=== PATIENT | female | born 1975 | race Caucasian/White ===

== ENCOUNTER → 2017-05-23 09:04 | Outpatient (CLI) | payer OTHER, SELFPAY ==
--- NOTE | 2017-05-23 | US_ITS ---
US abdomen complete HISTORY: Abdominal mass, palpable abnormality right side of the abdomen ORDERING PHYSICIAN: Leilani Cullen PATIENT AGE: 42 years COMPARISON: None FINDINGS: PANCREAS:Unremarkable. No obvious mass or abnormal fluid collection. No ductal dilatation LIVER:No focal liver lesions demonstrated. Homogeneous echogenicity. No intrahepatic biliary ductal dilatation evident RIGHT KIDNEY:Unremarkable. Normal size and echogenicity. No hydronephrosis LEFT KIDNEY:Unremarkable. No hydronephrosis. Normal size and echogenicity. GALLBLADDER:No gallstones, gallbladder wall thickening, pericholecystic fluid, or biliary dilatation. There is a small gallbladder polyp along the anterior wall of the gallbladder measuring 4 mm. AORTA:No evidence of aneurysmal dilatation. SPLEEN:Unremarkable. Normal size and echogenicity ASCITES:None demonstrated. Evaluation of the abdominal wall in the right lower quadrant is limited technically. There may be a abdominal wall defect with hernia in the right lower quadrant. Recommend CT for confirmation. This is not adequately evaluated with ultrasound. IMPRESSION: 1. Possible abdominal wall hernia right lower quadrant recommend CT 2. Small gallbladder polyp
--- NOTE | 2017-05-23 09:17 | US_ITS ---
US transvaginal HISTORY: ITS.REASON: LUMP IN RLQ--PALP MASS ORDERING PHYSICIAN: Leilani Cullen PATIENT AGE: 42 years COMPARISON: None FINDINGS: The uterus is retroverted UTERUS: The uterus measures 8 x 4 x 5 cm. Combined endometrial thickness is 1 cm. The uterus is retroverted. Small nabothian cysts RIGHT OVARY: 3 x 2 cm. There are small follicles measuring up to 14 mm LEFT OVARY: 4.7 x 3.8 cm. There is a 3 x 3.9 cm left ovarian cyst CUL-DE-SAC FLUID: No cul-de-sac fluid apparent OTHER FINDINGS: Bilateral ovarian blood flow IMPRESSION: 1. Retroverted uterus.. Endometrium upper limits of normal in thickness 2. 4 cm left ovarian cyst and 1.4 cm right ovarian cyst
== END ==
PROVIDERS: Family Provider Nurse Practitioner; PCP Family Medicine; Visit Provider Nurse Practitioner
DX: R22.9 Localized swelling, mass and lump, unspecified (principal); R10.31 Right lower quadrant pain
CPT/HCPCS: 76700; 76830

== ENCOUNTER → 2017-06-20 08:09 | Outpatient (CLI) | payer OTHER, SELFPAY ==
--- NOTE | 2017-06-20 10:30 | CT_ITS ---
CT abdomen pelvis w con CLINICAL INDICATION: ITS.REASON: ABDOMINAL HERNIA W/O OBSTRUCTION ORDERING PHYSICIAN: Karly Arnold PATIENT AGE: 42 years COMPARISON: None TECHNIQUE: Axial images obtained with sagittal and coronal reformats. PROCEDURE: Oral Contrast: Redicat IV Contrast: 75 mL of Isovue-370. FINDINGS: In the lung bases there is a 13 mm oval opacity along the right hemidiaphragm slightly posteriorly this is subpleural along the hemidiaphragm. The liver, gallbladder, spleen, adrenal glands, pancreas, and kidneys have an unremarkable appearance Unremarkable appendix. There are diverticula of the descending and sigmoid colon. No evidence of diverticulitis. No pelvic mass or abnormal fluid collection. The uterus is retroverted and slightly bulky at the fundal area There is a small right inguinal hernia. The hernia is lateral to the inferior epigastric vessels consistent with an indirect hernia. Small bowel is present within the hernia. Once the small bowel enters the hernia there is a loop which traverses superiorly between the layers of the fascia and also inferiorly toward the inguinal region. No intestinal obstruction is evident. No evidence of strangulation. No acute bony anomalies. IMPRESSION: 1. Small right indirect inguinal hernia containing small bowel without evidence of obstruction or strangulation 2. 13 mm oval opacity in the right lung base adjacent to the diaphragm. This is of questionable clinical significance. Follow-up is recommended 3. Colonic diverticulosis. 4. Bulky retroverted uterus
== END ==
PROVIDERS: Family Provider Nurse Practitioner; PCP Family Medicine; Visit Provider Nurse Practitioner Family
DX: K45.8 Other specified abdominal hernia without obstruction or gangrene (principal)
CPT/HCPCS: 74177

== ENCOUNTER 2017-06-27 11:28 | Day surgery (SDC) | payer OTHER, SELFPAY ==
[2017-06-26 13:31] VITALS: BMI 24.3
[2017-06-27] VITALS (13 sets, daily range): BP systolic 113–138; BP diastolic 70–90; PULSE 69–86; RESP 16–18; TEMP 36.3–43; O2SAT 93–99
[2017-06-27 12:36] LABS: Basophils # 0.1 K/mm3 (0-0.2); Basophils % 0.5 % (0.1-2.0); Eosinophils # 0.2 K/mm3 (0.0-0.4); Eosinophils % 1.9 % (0.1-12.0); Hematocrit 50.1 % (37.0-47.0); Hemoglobin 16.4 g/dL (12.2-16.2); Lymphocytes # 2.4 K/mm3 (0.7-4.5); Lymphocytes % 21.8 K/mm3 (10-50); Mean Corpuscular HGB Conc 32.7 g/dL (31.8-35.4); Mean Corpuscular Volume 91.7 fl (81-99); Mean Platelet Volume 8.8 fl (7.4-10.4); Monocytes # 0.6 K/mm3 (0.1-1.0); Neutrophils # 7.8 K/mm3 (1.8-7.8); Neutrophils % 70.7 % (37.0-80.0); Platelet Count 231 K/mm3 (142-424); Red Blood Count 5.47 M/mm3 (4.20-5.40); Red Cell Distribution Width 12.6 % (11.5-17.5); White Blood Count 11.1 K/mm3 (4.8-10.8)
[2017-06-27 12:37] LABS: Anion Gap 10.6 mEq/L (5-15); Blood Urea Nitrogen 7 mg/dL (7-18); Carbon Dioxide 28 mmol/L (21.0-32.0); Chloride 104 mmol/L (98-107); Creatinine Clearance Estimated 130 mL/min (0-300); Creatinine,Serum 0.63 mg/dL (0.55-1.02); Estimated Glomerular Filt Rate 104 ml/min (>60); GFR (African American) 126 ML/MIN (>60); Glucose 86 mg/dL (74-106); Potassium 3.6 mmoL/L (3.5-5.1); Sodium 139 mmol/L (136-145)
[2017-06-27 12:49] LABS: HCG Qualitative, Serum Negative (Negative)
--- NOTE | 2017-06-27 14:16 | HMH.OPNOTE ---
Date of procedure: 06/27/17 Pre-op Diagnosis:: Right inguinal hernia Post-op Diagnosis:: same Procedure performed:: Open repair of right inguinal hernia Surgeon:: Chris oMraes MD [employer] OPERATOR:: Francisco Moon Anesthesia: LMA Estimated blood loss (mL): 10 Operative findings:: Large superior margin direct defect Operative note:: After informed consent was obtained, the patient was taken to the operating room and placed in the supine position. General anesthesia was induced and her abdomen and groin were prepped and draped in a sterile fashion. After infiltration with local anesthetic an oblique incision was made in the right groin. Sharp dissection was taken through Skyla's fascia to the level of the external aponeurosis. The external aponeurosis was sharply opened with Metzenbaum scissors to the level of the external ring. A large superior margin direct defect was noted. Careful reduction of preperitoneal fat and sac was followed by placement of an extra large Prolene plug. The Prolene plug was secured circumferentially to the fascial margin. The Prolene overlay mesh was then secured inferiorly to the shelving edge and superiorly to the fascial margin above the plug. The external aponeurosis was reapproximated with interrupted Vicryl. Skyla's fascia was reapproximated in the same manner. Skin was closed with 4-0 Monocryl in a running subcuticular fashion. Steri-Strips and a sterile dressing were applied. The patient was transferred to recovery in stable condition after removal of her laryngeal mask airway. Condition: stable Disposition: PACU Specimens:: None Complications:: No immediate
--- NOTE | 2017-06-27 14:20 | P.OP_ITS ---
Date of procedure: 06/27/17 Pre-op Diagnosis:: Right inguinal hernia Post-op Diagnosis:: same Procedure performed:: Open repair of right inguinal hernia Surgeon:: Chris Moraes MD [employer] ANALYST:: Francisco Moon Anesthesia: LMA Estimated blood loss (mL): 10 Operative findings:: Large superior margin direct defect Operative note:: After informed consent was obtained, the patient was taken to the operating room and placed in the supine position. General anesthesia was induced and her abdomen and groin were prepped and draped in a sterile fashion. After infiltration with local anesthetic an oblique incision was made in the right groin. Sharp dissection was taken through Skyla's fascia to the level of the external aponeurosis. The external aponeurosis was sharply opened with Metzenbaum scissors to the level of the external ring. A large superior margin direct defect was noted. Careful reduction of preperitoneal fat and sac was followed by placement of an extra large Prolene plug. The Prolene plug was secured circumferentially to the fascial margin. The Prolene overlay mesh was then secured inferiorly to the shelving edge and superiorly to the fascial margin above the plug. The external aponeurosis was reapproximated with interrupted Vicryl. Skyla's fascia was reapproximated in the same manner. Skin was closed with 4-0 Monocryl in a running subcuticular fashion. Steri- Strips and a sterile dressing were applied. The patient was transferred to recovery in stable condition after removal of her laryngeal mask airway. Condition: stable Disposition: PACU Specimens:: None Complications:: No immediate
--- NOTE | 2017-06-27 14:28 | P.PN_ITS ---
[facility] Anesthesia Checklist - Patient Identification Patient Identification: Arm Band - Structural Data Admitted From: Home Planned Operative Procedure/s: right inguinal herniar repair Consent for Planned Operative Procedure(s) Verified: Yes Verified Documents: Surgical Consent, History and Physical - NPO Status Verified Time NPO: 00:00 - Additional verifications Anesthesia Reactions: No - Airway Assessment C-Spine Mobility Assessed: Yes (mp2) TMJ Mobility Assessed: Yes Dentition: Good Dentition - Neurological Assessment Level of Consciousness: Awake, Alert - Anesthesia Plan Anesthesia Risk discussed: Yes Anesthesia Plan: Verified ASA Class: II Anesthesia Type: General [facility] Anesthesia HX I have reviewed the patient's past medical history: Yes Medical History: Denies:: Cancer, Diabetes Mellitus Type 1, Diabetes Mellitus Type 2, MRSA, Seizures Other Medical History: Denies: Blood Transfusion Reaction Other Surgeries: Yes: Tubal Ligation Amputation: No Fractures: No *Family Hx:: Anemia, Cancer, Coronary Artery Disease, Diabetes, Hypertension
--- NOTE | 2017-06-27 14:28 | HMH.ANESI ---
[facility] Anesthesia Record Part I Intake, IV Amount: 1,400 Estimated blood loss (mL): 10 Urine output (mL): 100 Blood Pressure: 129/90 SaO2: 96 Pulse Rate: 77 Respiratory Rate: 16 Temperature: 97.4 F Patient is:: Drowsy, Stable Stable to PACU at:: 14:25
--- NOTE | 2017-06-27 14:29 | P.PN_ITS ---
[facility] Anesthesia Record Part II Discharge Time: 14:55 Destination: [facility] PACU nurse assessment reviewed?: Yes Patient Condition:: Good Anesthesia Complications:: None
--- NOTE | 2017-06-27 14:29 | HMH.ANESII ---
[facility] Anesthesia Record Part II Discharge Time: 14:55 Destination: [facility] PACU nurse assessment reviewed?: Yes Patient Condition:: Good Anesthesia Complications:: None
--- NOTE | 2017-06-27 15:40 | SUR.OPER ---
1418-griffith catheter removed at this time
[2017-06-27 18:53] LABS: Microscopic,Cath URINE MICROSCOPIC (MICROSCOPIC)
[2017-06-27 20:15] LABS: Appearance,Urine/Cath CLEAR (Clear); Bilirubin,Cath Negative (Negative); Blood, Urine/Cath TRACE-I (Negative); Color,Urine/Cath YELLOW (Yellow); Glucose,Urine/Cath (UA) Negative (Negative); Ketones,Urine/Cath 2+ (Negative); Leukocyte Esterase,Cath Negative (Negative); Nitrate,Cath Negative (Negative); PH,Urine/Cath 7.5 (5.0-8.5); Protein,Urine/Cath Negative (Negative); Urobilinogen,Cath 0.2 EU/dl (0.2)
[2017-06-27 20:36] LABS: Bacteria,Urine/Cath TRACE /lpf; Mucus,Urine/Cath 4+ /lpf; RBC,Urine/Cath Occasional # /hpf (0-3); WBC,Urine/Cath Occasional #/hpf (0-3)
== END 2017-06-27 15:35 | disposition home or self-care (01) ==
LOC: OR 11:28
PROVIDERS: Family Provider Nurse Practitioner; PCP Family Medicine; Visit Provider Surgery
PROC: (CPT 49505; principal; 2017-06-27 13:05)
DX: K40.90 Unilateral inguinal hernia, without obstruction or gangrene, not specified as recurrent (principal)
CPT/HCPCS: 49505; 80048; 81001; 84703; 85025; 96374; J0131; J2405

== ENCOUNTER → 2017-07-29 12:09 | Outpatient (CLI) | payer OTHER, SELFPAY ==
--- NOTE | 2017-07-29 12:23 | XR_ITS ---
XR chest 2V HISTORY: ITS.REASON: LUNG NODULE ORDERING PHYSICIAN: Wilmer Neely MD PATIENT AGE: 42 years COMPARISON: Abdomen CT of 318 which showed a nodule in the right lung base FINDINGS: The cardiomediastinal silhouette and pulmonary vascularity are within normal limits. The lungs are clear without infiltrates, suspicious nodules, or pleural effusions. The previously described nodule in the right lung base is probably below limits of resolution for the radiograph. No acute bony abnormalities. IMPRESSION: Negative chest, no acute finding
== END ==
PROVIDERS: PCP Family Medicine; Visit Provider Family Medicine
DX: R91.1 Solitary pulmonary nodule (principal)
CPT/HCPCS: 71046

== ENCOUNTER 2018-09-24 21:23 | Emergency (ER) | payer OTHER, SELFPAY ==
[2018-09-24 21:24] VITALS: BP 101/61; PULSE 104; RESP 15; TEMP 36.8; O2SAT 96; BMI 24.5
--- NOTE | 2018-09-24 21:26 | XR_ITS ---
XR chest 2V HISTORY: ITS.REASON: chest pain ORDERING PHYSICIAN: Abilio Mills MD PATIENT AGE: 43 years COMPARISON: None FINDINGS: The cardiomediastinal silhouette and pulmonary vascularity are within normal limits. There is increased density in the right upper lobe medially and may be due to an area of pneumonia. Recommend follow-up until clear. The remaining lungs are clear. No acute bony anomalies. IMPRESSION: Right upper lobe pneumonia. Suggest follow-up until clear is underlying lung lesion could be obscured.
--- NOTE | 2018-09-24 21:26 | CT_ITS ---
CT abdomen pelvis w con CLINICAL INDICATION: Right-sided abdominal pain with nausea ITS.REASON: chest pain/shoulder blade pain poss gb attack ORDERING PHYSICIAN: Abilio Mills MD PATIENT AGE: 43 years COMPARISON: 06/20/2017 TECHNIQUE: Axial images obtained with sagittal and coronal reformats. All CT scans at the facility use one or more dose reduction, viz: automated exposure control, ma/kV adjustment per patient size (including targeted exams where dose is matched to indication, i.e. head), or iterative reconstruction technique. PROCEDURE: Oral Contrast: None IV Contrast: 75 mL's Optiray 350. FINDINGS: There is some nodularity along the hemidiaphragm in the right lung base nonspecific. The liver, gallbladder, spleen, adrenal glands, pancreas, and kidneys have an unremarkable appearance. No intestinal obstruction or free air. Unremarkable appendix. Diverticulosis involves the descending and sigmoid colon. No evidence of diverticulitis. No intestinal obstruction or free air. The uterus is retroverted with prominence of the fundus of the uterus possibly related to fibroid involvement. Ultrasound may be of further value. No acute bony anomalies. Soft tissue density noted in the right inguinal region may be related to sequela from hernia repair. IMPRESSION: 1. No acute finding. 2. Colonic diverticulosis. 3. Possible fibroid involvement of the fundus of a retroverted uterus which may be better evaluated with ultrasound 4. Postsurgical changes right inguinal region.
[2018-09-24 21:37] LABS: Basophils # 0.1 K/mm3 (0-0.2); Basophils % 0.9 % (0.1-2.0); Eosinophils # 0.3 K/mm3 (0.0-0.4); Eosinophils % 4.3 % (0.1-12.0); Hematocrit 48.6 % (37.0-47.0); Hemoglobin 15.7 g/dL (12.2-16.2); Lymphocytes # 2.5 K/mm3 (0.7-4.5); Lymphocytes % 31.9 % (10-50); Mean Corpuscular HGB Conc 32.3 g/dL (31.8-35.4); Mean Corpuscular Hemoglobin 28.6 pg (27.0-31.2); Mean Corpuscular Volume 88.7 fl (81-99); Mean Platelet Volume 7.5 fl (7.4-10.4); Monocytes # 0.4 K/mm3 (0.1-1.0); Monocytes % 5.4 % (1.7-9.3); Neutrophils # 4.5 K/mm3 (1.8-7.8); Neutrophils % 57.5 % (37.0-80.0); Platelet Count 264 K/mm3 (142-424); Red Blood Count 5.49 M/mm3 (4.20-5.40); Red Cell Distribution Width 12.4 % (11.5-17.5); White Blood Count 7.8 K/mm3 (4.8-10.8)
[2018-09-24 21:42] LABS: Microscopic, Urine URINE MICROSCOPIC (MICROSCOPIC)
[2018-09-24 21:43] LABS: Appearance,Urine CLEAR (Clear); Blood, Urine TRACE-I (Negative); Color,Urine YELLOW (Yellow); Glucose,Urine (UA) Negative (Negative); Ketones,Urine TRACE (Negative); Leukocyte Esterase,Urine Negative (Negative); Nitrate,Urine Negative (Negative); PH,Urine 6.5 (5.0-8.5); Protein,Urine TRACE (Negative); Specific Gravity, Urine >= 1.030 (1.005-1.030); Urobilinogen,Urine 0.2 EU/dl (0.2)
--- NOTE | 2018-09-24 21:44 | HMH.EDCP ---
ED Disposition Clinical Impression: Atypical chest pain Disposition: Home, Self-Care Condition on Discharge: Good Instructions: DI for Atypical Chest Pain Additional Instructions: see pcp for follow up Referrals: Rivera Johnson MD [Primary Care Provider] - - Critical Care Critical Care Time: No Attestation: On 09/24/18, the high probability of a clinically significant, sudden or life threatening deterioration of the following system(s) required my full and direct attention, intervention and personal management. The time I documented below is in addition to time spent performing reported procedures but includes the following listed in this critical care notation. Medical Decision Making - Medical Records Medical records reviewed: Yes: I reviewed the patient's medical records. - Americo Inquiry Pt receiving controlled substance: No Vital Signs: 09/24/18 21:24 09/24/18 22:23 09/24/18 22:30 Temperature 98.3 F Temperature Source Oral Pulse Rate [Right Brachial] 104 H 68 65 Respiratory Rate 15 17 17 Blood Pressure [Right Arm] 101/61 L 130/78 137/73 Blood Pressure Mean [Right Arm] 74 95 94 02 Sat by Pulse Oximetry 96 97 98 Oxygen Delivery Method Room Air - Lab Data Lab results reviewed: Yes: I reviewed the patient's lab results. Lab Results 09/24/18 21:30: WBC 7.8, RBC 5.49 H, Hgb 15.7, Hct 48.6 H, MCV 88.7, MCH 28.6, MCHC 32.3, RDW 12.4, Plt Count 264, MPV 7.5, Neut % (Auto) 57.5, Lymph % (Auto) 31.9, [place] % (Auto) 5.4, Eos % (Auto) 4.3, Baso % (Auto) 0.9, Neut # (Auto) 4.5, Lymph # (Auto) 2.5, [place] # (Auto) 0.4, Eos # (Auto) 0.3, Baso # (Auto) 0.1 09/24/18 21:30: Sodium 142, Potassium 3.9, Chloride 105, Carbon Dioxide 27, Anion Gap 13.9, BUN 16, Creatinine 0.79, Estimated Creat Clear 107, Estimated GFR 80, Est GFR ( Amer) 97, Glucose 135 H, Calcium 8.8, Total Bilirubin 0.4, Direct Bilirubin 0.1, Indirect Bilirubin 0.3, AST 18, ALT 28, Alkaline Phosphatase 105, Troponin I < 0.02, Total Protein 7.3, Albumin 3.9, Amylase 43, Lipase 128 09/24/18 21:30: D-Dimer 116 09/24/18 21:36: Urine Color Yellow, Urine Appearance Clear, Urine pH 6.5, Ur Specific [place] >= 1.030, Urine Protein Trace, Urine Glucose (UA) Negative, Urine Ketones Trace, Urine Blood Trace-i, Urine Nitrate Negative, Urine Bilirubin Negative, Urine Urobilinogen 0.2, Ur Leukocyte Esterase Negative, Urine WBC Occasional, Ur Squamous Epith Cells 3-5, Urine Bacteria 1+ Result diagrams: 09/24/18 21:30 09/24/18 21:30 Orders (Tests/Meds): ED MEDICATIONS Generic Name Dose Route Start Last Admin Trade Name Freq PRN Reason Stop Dose Admin Sodium Chloride 1,000 mls @ 999 mls/hr 09/24/18 21:30 09/24/18 21:35 Sod Chlor 0.9% 1000ml Bag IV 09/24/18 22:30 999 mls/hr .[id number] Administration Discontinued Medications Generic Name Dose Route Start Last Admin Trade Name Freq PRN Reason Stop Dose Admin Famotidine 20 mg 09/24/18 21:28 09/24/18 21:35 Pepcid 20mg/2ml Vial IV 09/24/18 21:29 20 mg ONCE ONE Administration Ioversol 75 ml 09/24/18 22:08 09/24/18 22:09 Rad-Optiray 350 100ml Vial IV 09/24/18 22:09 75 ml ONCE ONE Administration Protocol Ketorolac Tromethamine 30 mg 09/24/18 22:41 Toradol 30mg/Ml Vial IV 09/24/18 22:42 ONCE ONE Metoclopramide HCl 10 mg 09/24/18 21:28 09/24/18 21:35 Reglan 10mg/2ml Vial IVP 09/24/18 21:29 10 mg ONCE ONE Administration Morphine Sulfate 4 mg 09/24/18 22:41 Morphine 4mg/Ml Syringe IV 09/24/18 22:42 ONCE ONE Ondansetron HCl 4 mg 09/24/18 22:41 Zofran 4mg/2ml Vial IV 09/24/18 22:42 ONCE ONE Sodium Chloride 10 ml 09/24/18 22:08 09/24/18 22:09 Rad-Saline Flush 10ml Syringe IV 09/24/18 22:09 10 ml ONCE ONE Administration ORDERS Category Date Time Status CT abdomen pelvis w con Stat Cat Scan 09/24/18 21:26 Taken XR chest 2V Stat Exams 09/24/18 21:26 Taken ECG Request by /Bob Stat Y 09/24/18 21:26 O
[2018-09-24 21:45] LABS: Bilirubin,Urine Negative (Negative)
[2018-09-24 21:48] LABS: Bacteria,Urine 1+ /lpf; WBC,Urine Occasional #/hpf (0-3)
--- NOTE | 2018-09-24 21:51 | PC.NURSE ---
GOING TO XRAY VIA WC
[2018-09-24 21:52] LABS: Alanine Aminotransferase 28 U/L (12-78); Albumin Level 3.9 gm/dL (3.4-5.0); Alkaline Phosphatase 105 U/L (46-116); Amylase 43 U/L (25-115); Anion Gap 13.9 mEq/L (5-15); Aspartate Amino Transferase 18 U/L (15-37); Bilirubin,Direct 0.1 mg/dL (0.0-0.2); Bilirubin,Indirect 0.3 mg/dL (0.0-0.9); Bilirubin,Total 0.4 mg/dL (0.2-1.0); Blood Urea Nitrogen 16 mg/dL (7-18); Calcium 8.8 mg/dL (8.5-10.1); Carbon Dioxide 27 mmol/L (21.0-32.0); Chloride 105 mmol/L (98-107); Creatinine Clearance Estimated 107 mL/min (50-200); Creatinine,Serum 0.79 mg/dL (0.55-1.02); D-Dimer 116 ng/mL (0-400); Estimated Glomerular Filt Rate 80 ml/min (>60); GFR (African American) 97 ML/MIN (>60); Glucose 135 mg/dL (74-106); Lipase 128 u/L (73-393); Potassium 3.9 mmoL/L (3.5-5.1); Sodium 142 mmol/L (136-145); Total Protein,Serum 7.3 gm/dL (6.4-8.2); Troponin I < 0.02 ng/ml (0.00-0.06)
--- NOTE | 2018-09-24 22:01 | PC.NURSE ---
pt in radiology
[2018-09-24 22:23] VITALS: BP 130/78; PULSE 68; RESP 17; O2SAT 97
[2018-09-24 22:30] VITALS: BP 137/73; PULSE 65; RESP 17; O2SAT 98
[2018-09-24 22:58] VITALS: BP 121/74; PULSE 84; RESP 17; TEMP 36.8; O2SAT 96
== END 2018-09-24 22:59 | disposition home or self-care (01) ==
PROVIDERS: Emergency Provider Emergency Medicine; PCP Family Medicine
DX: R07.89 Other chest pain (principal); G43.709 Chronic migraine without aura, not intractable, without status migrainosus; F17.210 Nicotine dependence, cigarettes, uncomplicated; Z88.5 Allergy status to narcotic agent
CPT/HCPCS: 71046; 74177; 80048; 80076; 81001; 82150; 83690; 84484; 85025; 85378; 93005; 96365; 96375; 99284; J2405; Q9967

== ENCOUNTER → 2019-08-23 14:27 | Outpatient (CLI) | payer OTHER, SELFPAY ==
[2019-08-24 17:23] LABS: Covid-19 Nasal PCR Sendout Lex NOT DETECTED
--- NOTE | 2019-08-24 17:48 | PC.NURSE ---
1746 dr. broussard notified of NEGATIVE COVID-19 RESULTS 1747 PT NOTIFIED OF NEGATIVE COVID-19 TEST RESULTS
== END ==
PROVIDERS: Visit Provider Nurse Practitioner Family
DX: Z03.818 Encounter for observation for suspected exposure to other biological agents ruled out (principal); R05 Cough; R06.02 Shortness of breath
CPT/HCPCS: U0003

== ENCOUNTER → 2019-12-02 10:15 | Outpatient (CLI) | payer OTHER, SELFPAY ==
--- NOTE | 2019-12-02 10:25 | XR_ITS ---
PROCEDURE: XR LUMBAR SPINE MIN 4V CLINICAL INDICATION: SCIATIC LEG PAIN,LUMBAR PAIN COMPARISON: CR LS5 LUMBAR SPINE 5 VIEWS from 02/05/[address] abdomen pelvis w con from 09/24/2018 FINDINGS: No fracture or dislocation. No lytic or blastic change. There is normal mineralization. Mild degenerative disc disease is present with some decrease in the disc space from L1-L5 with small anterior osteophytes. Other findings:There is partial lumbarization of S1. there are bilateral tubal ligation clips present. IMPRESSION: Mild degenerative change, no acute finding Dictated b James Johnson MD 12/02/2019 11:56 James Johnson MD in [place] 12/02/2019 11:56
== END ==
PROVIDERS: PCP Nurse Practitioner; Visit Provider Nurse Practitioner
DX: M54.5 Low back pain (principal); M54.30 Sciatica, unspecified side
CPT/HCPCS: 72110

== ENCOUNTER 2020-04-06 19:56 | Emergency (ER) | payer OTHER, SELFPAY ==
[2020-04-06 20:05] VITALS: BP 129/91; PULSE 77; RESP 19; TEMP 36.9; O2SAT 98; BMI 28.1
--- NOTE | 2020-04-06 20:18 | HMH.EDUTC ---
[facility] Clinical Impression: Bronchitis, Sinusitis Disposition: Home, Self-Care Condition on Discharge: Good Instructions: Sinusitis, Acute Bronchitis, DI for COVID-19 (Suspected or Confirmed ), COVID-19 Viral Test, COVID-19: Testing and Tracing, Preventing the Spread of Coronavirus Discharge Instructions Additional Instructions: *Monitor Temp, Over the counter Motrin or Tylenol as directed/as needed Tylenol every 4 hours and Motrin every 6 hours (as long as your family doctor has told you that you can take it) for fever or pain. and straight to ER if unable to lower temp less than 101.0 after medication given *Warm salt water gargles may help to soothe the throat *Throat Lozenges *Warm fluids like tea with honey may help to soothe the throat *Sleep elevated *Humidifier/Vaporizer Follow up IMMEDIATELY for new or worsening symptoms or no Noticeable improvement over the next 48-72 hours. 911 for difficulty breathing or swallowing You were tested for today for COVID19 your test result should be back in the next 24-48 hours, you may call to the [facility] to see if your test results are back in the next 48 hours [phone] [facility] hours are 9am-9pm You was given a handout with instructions for Self Quarantine and Self isolation for while you wait on test results and what to do if they are positive If you are positive the Health Dept will be contacting you also Prescriptions: Albuterol Sulfate [Proventil-HFA 90mcg/puff Inh] 1 - 2 puffs IH Q4HP PRN #1 inh PRN Reason: Shortness Of Breath Transmission Status: Pending to [facility] predniSONE [Deltasone 10mg tablet] 10 mg PO BID 3 Days #6 tab Transmission Status: Pending to [facility] Azithromycin [Z-Matthew 250mg Tab] 250 mg PO DIRECTED #6 tab Transmission Status: Pending to [facility] Referrals: Wilmer Neely MD [Primary Care Provider] - As needed Forms: Work/School Release Time of Disposition: 20:27 Medical Decision Making - Americo Inquiry Pt receiving controlled substance: No Americo was queried for this patient: No Vital Signs: 04/06/20 20:05 Temperature 98.5 F Temperature Source Oral Pulse Rate [Right Brachial] 77 Respiratory Rate 19 Blood Pressure [Right Arm] 129/91 H Blood Pressure Mean [Right Arm] 103 Blood Pressure Source [Right Arm] Automatic Cuff Blood Pressure Position [Right Arm] Sitting 02 Sat by Pulse Oximetry 98 Oxygen Delivery Method Room Air Orders (Tests/Meds): ORDERS Category Date Time Status Covid-19 Nasal PCR Sendout [facility] Stat [facility] 04/06/20 19:57 [place] [facility] [place] - General Stated complaint: covid test Time Seen by Provider: 04/06/20 20:19 Mode of Arrival: Ambulatory Source of Information: Patient Limitations: No Limitations Description of Symptoms (Recalled from Triage Doc. by RN): PATIENT C/O PRODUCTIVE COUGH AND CHEST TIGHTNESS; REQUESTING COVID TEST HEENT Symptoms (Recalled from RN notes): No Resp Symptoms (Recalled from RN notes): Yes Skin Symptoms (Recalled from RN notes): No MS Symptoms (Recalled from RN notes): No Functional Status (Recalled from RN notes): WNL - History of Present Illness Provider Complaint: Patient states that she has history of bronchitis States that she has been having cough, nasal congestion and feeling like she is having some drainage in the back of throat State that she feels a burning at times with cough States that she recently kept her grandchild that was sick and now she isnt feeling well either States that she is an everyday smoker - Related Data Previous Rx's Medication Instructions Recorded Albuterol Sulfate [Proventil-HFA 1 - 2 puffs IH Q4HP PRN #1 inh 04/06/20 90mcg/puff Inh] Azithromycin [Z-Matthew 250mg Tab] 250 mg PO DIRECTED #6 tab 04/06/20 predniSONE [Deltasone 10mg tablet] 10 mg PO BID 3 Days #6 tab 04/06/20 Allergies Allergy/AdvReac Type Severity Reaction Status Date / Time butalbital [BUTALBITAL] Allergy Mild KAN ON Veri
[2020-04-06 20:29] VITALS: BP 129/91; PULSE 77; RESP 19; TEMP 36.9; O2SAT 98
[2020-04-08 10:52] LABS: Covid-19 Nasal PCR Sendout P&C NEGATIVE
== END 2020-04-06 20:36 | disposition home or self-care (01) ==
PROVIDERS: Emergency Provider Nurse Practitioner; PCP Family Medicine
DX: Z20.828 Contact with and (suspected) exposure to other viral communicable diseases (principal); J20.9 Acute bronchitis, unspecified; J01.90 Acute sinusitis, unspecified; F17.210 Nicotine dependence, cigarettes, uncomplicated; Z88.2 Allergy status to sulfonamides; Z88.5 Allergy status to narcotic agent
CPT/HCPCS: 99201; U0004

== ENCOUNTER → 2020-04-17 10:33 | Outpatient (CLI) | payer OTHER, SELFPAY ==
--- NOTE | 2020-04-17 10:43 | CT_ITS ---
PROCEDURE: CT ABDOMEN PELVIS W CON CLINICAL INDICATION: RLQ PAIN,RLQ ABD SWELLING,H/O INQUINAL HERNIA COMPARISON: CT ABDPELW CT abdomen pelvis w con from 09/24/2018 TECHNIQUE: IV Contrast: 75ML OPTIRAY 350 Oral Contrast 20ml Gastroview Axial images obtained with sagittal and coronal reformats. All CT scans at the facility use one or more dose reduction, viz: automated exposure control, ma/kV adjustment per patient size (including targeted exams where dose is matched to indication, i.e. head), or iterative reconstruction technique. FINDINGS: Lower thorax: Clear and there is no pleural fluid ABDOMEN: Liver: No masses or biliary dilatation. Gallbladder: Nondistended. No radio opaque stones. Pancreas: No masses or peripancreatic fluid collections. Spleen: Normal in size couple of tiny calcifications. Adrenals: unremarkable Kidneys/ureters: The kidneys are normal size and show symmetrical function both appearing normal. ABDOMEN & PELVIS: Stomach bowel: The stomach and small bowel appear normal. There is scattered stool and gas seen throughout the colon. There is mild diffuse diverticulosis of lower descending and sigmoid colon no evidence of diverticulitis. Peritoneum: There is a small umbilical hernia containing fat only. There is hazy density in the subcutaneous tissues right inguinal region likely postsurgical scarring. Lymph nodes: No abnormal lymph nodes identified. Vasculature: No evidence of abdominal aortic aneurysm. No retroperitoneal hemorrhage evident. Bones: No acute fracture PELVIS: Reproductive: The uterus is normal in size and retroverted with a prominent uterine fundus which shows increased enhancement and possibly due to a large fibroid. This is similar in appearance to the previous CT scan 09/24/2018. Bladder: Nondistended. No obvious stones or masses. There is no free fluid in the pelvis. Appendix: Not definitely visualized but there are no pericecal inflammatory changes. IMPRESSION: 1. No acute abdominal or pelvic pathology identified 1. Mild diffuse diverticulosis lower descending and sigmoid colon without diverticulitis 2. Retroverted uterus with prominent fundus probably due to a fibroid. 3. Stable minimal post surgical scarring right inguinal region Dictated by: Dr. Sergio Houston MD 04/17/2020 12:00 Dr. Sergio Houston MD in [place] 04/17/2020 12:00
== END ==
LOC: RAD 10:33
PROVIDERS: PCP Family Medicine; Visit Provider Nurse Practitioner Family
DX: R10.31 Right lower quadrant pain (principal); R19.03 Right lower quadrant abdominal swelling, mass and lump; Z98.890 Other specified postprocedural states; Z87.19 Personal history of other diseases of the digestive system
CPT/HCPCS: 74177; Q9967

== ENCOUNTER → 2020-04-27 14:04 | Outpatient (CLI) | payer OTHER, SELFPAY ==
--- NOTE | 2020-04-27 14:04 | US_ITS ---
PROCEDURE: US TRANSVAGINAL CLINICAL INDICATION: pelvic pain heavy bleeding f/u on fibroid COMPARISON: US TRANVAG US transvaginal from 05/23/[address] ABDOMEN PELVIS W CON from 04/17/2020 FINDINGS: UTERUS: 9cm x 5cmx 4cm with a combined endometrial thickness of 3.4mm LEFT OVARY: [id number] with a volume of 4ml. RIGHT OVARY: [id number] with a volume of 7.2ml. The uterus is retroverted. There are multiple nabothian cysts. A uterine fibroid is not demonstrated. There are small bilateral follicular cyst of the ovaries. No cul-de-sac fluid. The uterine fundus is slightly prominent but no fibroid is apparent. IMPRESSION: Retroverted uterus. Mild prominence of the fundus but no fibroid apparent. Dictated by: James Johnson MD 04/28/2020 09:47 James Johnson MD in [place] 04/28/2020 09:47
== END ==
PROVIDERS: PCP Family Medicine; Visit Provider Nurse Practitioner Obstetrics & Gynecology
DX: R10.2 Pelvic and perineal pain (principal); D25.9 Leiomyoma of uterus, unspecified
CPT/HCPCS: 76830

== ENCOUNTER 2020-06-06 15:44 | Emergency (ER) | payer OTHER, SELFPAY ==
[2020-06-06 15:45] VITALS: BP 134/105; PULSE 110; RESP 18; TEMP 36.8; O2SAT 98; BMI 28.1
--- NOTE | 2020-06-06 15:47 | XR_ITS ---
PROCEDURE: XR COCCYX 2V CLINICAL INDICATION: FALL Reports pain at heel bone COMPARISON: No exams were available for comparison FINDINGS: Tubal ligation clips are visible. There is no sacral fracture. There is mild posterior displacement of the distal coccyx posteriorly. This is commonly seen in asymptomatic individuals however acute subluxation cannot be completely excluded. There is no fracture. IMPRESSION: No fracture. Questionable subluxation versus normal variant. Dictated by: Kayla Collins 06/06/2020 16:10 Kayla Collins in [place] 06/06/2020 16:10
--- NOTE | 2020-06-06 15:54 | HMH.EDUTC ---
[facility] Disposition Clinical Impression: Contusion of coccyx Qualifiers: Encounter type: initial encounter Qualified Code(s): S30.0XXA - Contusion of lower back and pelvis, initial encounter Disposition: Home, Self-Care Condition on Discharge: Good Instructions: Contusion, DI for Contusion Additional Instructions: Sitting on pillow may help with pain and discomfort *Ice to area for first couple of days then alternating ice with heat may help with pain and discomfort Soaks in warm water and epson salt may help with pain and soreness Follow up with your Family Doctor if no improvement or any worsening of symptoms Straight to ER if any life threatening symptoms Your blood pressure was elevated in UTC make sure to follow up with Family Doctor for further evaluation Prescriptions: Ibuprofen [Ibuprofen 800mg Tablet] 800 mg PO TIDP PRN #15 tab PRN Reason: Moderate Pain Transmission Status: Received by [facility] Referrals: Wilmer Neely MD [Primary Care Provider] - As needed Forms: Work/School Release Time of Disposition: 16:22 Medical Decision Making - Americo Inquiry Pt receiving controlled substance: No [place]o was queried for this patient: No Vital Signs: 06/06/20 15:45 06/06/20 16:26 Temperature 98.2 F 98.2 F Temperature Source Temporal Artery Scan Pulse Rate 110 H Pulse Rate [Left] 110 H Respiratory Rate 18 18 Blood Pressure 134/105 H Blood Pressure [Left Arm] 134/105 H Blood Pressure Mean [Left Arm] 114 Blood Pressure Source [Left Arm] Automatic Cuff Blood Pressure Position [Left Arm] Sitting 02 Sat by Pulse Oximetry 98 Oxygen Delivery Method Room Air Orders (Tests/Meds): ED MEDICATIONS Discontinued Medications Generic Name Dose Route Start Last Admin Trade Name Freq PRN Reason Stop Dose Admin Ketorolac Tromethamine 60 mg 06/06/20 16:10 06/06/20 16:12 Ketorolac 60mg/2ml Vial IM 06/06/20 16:11 60 mg ONCE ONE Administration - Radiology Data #1 Image(s): Other (coccyx) Image Reviewed: Yes I have reviewed radiologist's interpretation MPRESSION: No fracture. Questionable subluxation versus normal variant. Medical Decision Narrative: Patient denies risk of [facility] HPI - General Stated complaint: [place] [address] fell on tail Time Seen by Provider: 06/06/20 15:54 Mode of Arrival: Ambulatory Source of Information: Patient Limitations: No Limitations Description of Symptoms (Recalled from Triage Doc. by RN): PATIENT C/O TAILBONE PAIN AFTER FALLING ON ICE. DENIES ANY OTHER INJURY HEENT Symptoms (Recalled from RN notes): No Resp Symptoms (Recalled from RN notes): No Skin Symptoms (Recalled from RN notes): No MS Symptoms (Recalled from RN notes): Yes Functional Status (Recalled from RN notes): WNL - History of Present Illness Provider Complaint: Patient state that she was walking on ice 2 days ago when she slipped and fell and landed on her buttock area States that ever since she has been having pain in her tail bone area when she sits or trys to stand up States that she wasnt sure if she may have broken it or not so she came in to get it checked - Related Data Home Medications Medication Instructions Recorded Confirmed sumatriptan succinate 25 mg tablet 25 mg PO Q2H PRN 04/24/20 06/06/20 Previous Rx's Medication Instructions Recorded Ibuprofen [Ibuprofen 800mg 800 mg PO TIDP PRN #15 tab 06/06/20 Tablet] Allergies Allergy/AdvReac Type Severity Reaction Status Date / Time butalbital [BUTALBITAL] Allergy Mild KAN ON Verified 05/03/20 14:09 FINGERS codeine [CODEINE] Allergy Mild KAN ON Verified 05/03/20 14:09 FINGERS Sulfa (Sulfonamide Allergy Mild UNKNOWN Verified 05/03/20 14:09 Antibiotics) REACTION [SULFA (SULFONAMIDE ANTIBIOTICS)] acetaminophen [From Fioricet] Allergy Verified 05/03/20 14:09 caffeine [From Fioricet] Allergy Verified 05/03/20 14:09 - Worker's Comp Is this a Wor
[2020-06-06 16:26] VITALS: BP 134/105; PULSE 110; RESP 18; TEMP 36.8; O2SAT 98
== END 2020-06-06 16:28 | disposition home or self-care (01) ==
PROVIDERS: Emergency Provider Nurse Practitioner; PCP Family Medicine
DX: S30.0XXA Contusion of lower back and pelvis, initial encounter (principal); W00.0XXA Fall on same level due to ice and snow, initial encounter; Y92.018 Other place in single-family (private) house as the place of occurrence of the external cause; G43.709 Chronic migraine without aura, not intractable, without status migrainosus; F17.210 Nicotine dependence, cigarettes, uncomplicated; Z88.2 Allergy status to sulfonamides; Z88.6 Allergy status to analgesic agent
CPT/HCPCS: 72220; 96372; 99202; G0463

== ENCOUNTER → 2021-03-09 15:00 | Outpatient (CLI) | payer OTHER, SELFPAY | PROVIDERS: PCP Nurse Practitioner Family; Visit Provider Nurse Practitioner | DX: Z20.822 Contact with and (suspected) exposure to COVID-19 (principal) | CPT/HCPCS: C9803; U0003; U0005 ==

== ENCOUNTER → 2021-05-01 14:54 | Outpatient (CLI) | payer OTHER, SELFPAY | PROVIDERS: Visit Provider Nurse Practitioner | DX: U07.1 COVID-19 (principal) | CPT/HCPCS: C9803; U0003; U0005 ==

== ENCOUNTER → 2021-05-07 12:56 | Outpatient (CLI) | payer OTHER, SELFPAY | PROVIDERS: PCP Family Medicine; Visit Provider Nurse Practitioner | DX: U07.1 COVID-19 (principal) | CPT/HCPCS: C9803; U0003; U0005 ==

== ENCOUNTER → 2022-05-29 16:31 | Outpatient (CLI) | payer OTHER, SELFPAY ==
--- NOTE | 2022-05-29 16:32 | MM_ITS ---
PROCEDURE INFORMATION: Exam: MG Bilateral Screening 3D Mammography Exam date and time: 05/29/2022 4:26 PM Age: 47 years old Clinical indication: Baseline. No family history of breast cancer. TECHNIQUE: Imaging protocol: Bilateral Screening tomosynthesis and 2D mammography including computer-aided detection (CAD) when performed. COMPARISON: No relevant prior studies available. FINDINGS: MAMMOGRAPHY: Breast composition: The breasts are heterogeneously dense, which may obscure small masses. Mass: None. Architectural distortion: None. Calcifications: No suspicious calcifications. Asymmetric density: None. Skin thickening: None. Axillary adenopathy: None. IMPRESSION: No mammographic evidence of malignancy. Annual screening is recommended unless otherwise clinically indicated. ASSESSMENT: BI-RADS Category 1: Negative
== END ==
PROVIDERS: PCP Nurse Practitioner Obstetrics & Gynecology; Visit Provider Nurse Practitioner Obstetrics & Gynecology
DX: Z12.31 Encounter for screening mammogram for malignant neoplasm of breast (principal)
CPT/HCPCS: 77063; 77067

== ENCOUNTER 2022-07-11 19:31 | Emergency (ER) | payer OTHER, SELFPAY ==
[2022-07-11 19:45] VITALS: BP 138/90; PULSE 84; RESP 22; TEMP 36.8; O2SAT 97; BMI 25.0
--- NOTE | 2022-07-11 20:04 | EXP.UTC ---
Discharge Plan Disposition Patient Disposition: Home, Self-Care Condition: Good Prescriptions Prescriptions: New cephalexin 500 mg capsule 500 mg PO Q8H 7 Days Qty: 21 0RF mupirocin 2 % ointment 1 applic topical TID 10 Days Qty: 22 0RF Rx Instructions: apply to area on finger as directed No Action fluoxetine [Prozac] 20 mg capsule 20 mg PO DAILY Qty: 30 11RF hydroxyzine pamoate [Vistaril] 25 mg capsule 25 mg PO TID PRN (Reason: nausea and vomiting) Qty: 60 2RF phentermine [Adipex-P] 37.5 mg tablet 37.5 mg PO DAILY Qty: 30 0RF Rx Instructions: must administer 30 minutes before or 1-2 hours after breakfast sumatriptan succinate [Imitrex] 25 mg tablet 25 mg PO Q2H PRN (Reason: MIGRAINES) Qty: 20 1RF Rx Instructions: do not exceed 8 doses per 24 hrs Referrals Follow up/Referrals: Rivera Johnson MD [Primary Care Provider] - See instructions Activity Restrictions/Add. Instructions Additional Instructions/Restrictions: *Start antibiotic(s) immediately and be sure to take as ordered for the FULL length of time although you may be feeling better or start to see improvement in the next 24-48 hours *Monitor closely. Outlined redness so that you can monitor easier. Follow up immediately for new or worsening symptoms including but not limited to redness, swelling, streaking from site fever or chills. *Warm compress 15 minutes 3-4 times day *Never squeeze or pop these on your own. Seek immediate medical attention next time this occurs *Monitor Temp. Tylenol every 4 hours as needed and ibuprofen every 6 hours as needed (as long as your primary care doctor has told you that it is ok to take both. For fever, aches, pain. ER if no less that 101 despite Tylenol and ibuprofen ?Follow up with your family doctor/primary care physician in the next 48-72 hours if no improvement Clinical Impressions Clinical Impression: Cellulitis of finger Instructions Patient Instructions: Cellulitis, Cephalexin, Mupirocin Discharge ED Provider: Jennifer Bonilla [facility] [place] HPI General Stated complaint: possible spider bite on left ring finger Mode of Arrival: Ambulatory Source of Information: Patient Limitations: No Limitations Time Seen by Provider: 07/11/22 20:05 Description of Symptoms (Recalled from Triage Doc. by RN): PATIENT C/O POSSIBLE SPIDER BITE OR MRSA TO LEFT MIDDLE FINGER HEENT Symptoms (Recalled from RN notes): No Resp Symptoms (Recalled from RN notes): No Skin Symptoms (Recalled from RN notes): Yes MS Symptoms (Recalled from RN notes): No Functional Status (Recalled from RN notes): 07/06/22 History of Present Illness Provider Complaint: Patient states that she has a possible spider bite on her left middle finger that he thinks is getting infected States that she noticed a white raised area that looked like a bite and today it has continued to get more red and raised so tonight she came in to get it checked Related Data Previous Rx's Medication Instructions Recorded fluoxetine 20 mg capsule (Prozac) 20 mg PO DAILY #30 caps 05/29/22 hydroxyzine pamoate 25 mg capsule 25 mg PO TID PRN nausea and 06/24/22 (Vistaril) vomiting #60 caps phentermine 37.5 mg tablet 37.5 mg PO DAILY #30 tabs 06/24/22 (Adipex-P) sumatriptan succinate 25 mg tablet 25 mg PO Q2H PRN MIGRAINES #20 tabs 06/24/22 (Imitrex) cephalexin 500 mg capsule 500 mg PO Q8H 7 days #21 caps 07/11/22 mupirocin 2 % topical ointment 1 applic topical TID 10 days #22 07/11/22 grams Allergies Allergy/AdvReac Type Severity Reaction Status Date / Time butalbital [BUTALBITAL] Allergy Mild KAN ON Verified 06/24/22 15:13 FINGERS codeine [CODEINE] Allergy Mild KAN ON Verified 06/24/22 15:13 FINGERS Sulfa (Sulfonamide Allergy Mild UNKNOWN Verified 06/24/22 15:13 Antibiotics) REACTION [SULFA (SULFONAMIDE ANTIBIOTICS)] acetaminophen [From Fioricet] Allergy Verified 06/24/22 15:13 caffeine [From Fioricet] Allergy
[2022-07-11 20:14] VITALS: BP 138/82; PULSE 82; RESP 18; TEMP 36.8; O2SAT 98
== END 2022-07-11 20:20 | disposition home or self-care (01) ==
PROVIDERS: Emergency Provider Nurse Practitioner; PCP Family Medicine
DX: L03.012 Cellulitis of left finger (principal); B95.7 Other staphylococcus as the cause of diseases classified elsewhere
CPT/HCPCS: 87070; 87077; 87186; 87205; 99212; 99214; G0463

== ENCOUNTER 2022-08-13 18:34 | Emergency (ER) | payer OTHER, SELFPAY ==
[2022-08-13 19:16] VITALS: BP 123/74; PULSE 79; RESP 18; TEMP 37; O2SAT 99; BMI 27.8
--- NOTE | 2022-08-13 19:37 | EXP.UTC ---
Discharge Plan Disposition Patient Disposition: Home, Self-Care Condition: Good Prescriptions Prescriptions: New methylprednisolone [Medrol (Matthew)] 4 mg tablets,dose pack See Rx Instructions .Route .COMPLEX 6 Days Qty: 21 0RF Rx Instructions: taper pack; cefdinir 300 mg capsule 300 mg PO BID Qty: 20 0RF guaifenesin [Mucinex] 600 mg tablet extended release 12hr 600 - 1,200 mg PO BID PRN (Reason: cough) Qty: 20 0RF fluticasone propionate [Flonase Allergy Relief] 50 mcg/actuation spray,suspension 1 - 2 spray intranasal DAILY Qty: 16 0RF Rx Instructions: administer into each nostril daily No Action fluoxetine [Prozac] 20 mg capsule 20 mg PO DAILY Qty: 30 11RF hydroxyzine pamoate [Vistaril] 25 mg capsule 25 mg PO TID PRN (Reason: nausea and vomiting) Qty: 60 2RF sumatriptan succinate [Imitrex] 25 mg tablet 25 mg PO Q2H PRN (Reason: MIGRAINES) Qty: 20 1RF Rx Instructions: do not exceed 8 doses per 24 hrs phentermine [Adipex-P] 37.5 mg tablet 37.5 mg PO DAILY Qty: 30 0RF Rx Instructions: must administer 30 minutes before or 1-2 hours after breakfast mupirocin 2 % ointment 1 applic topical TID 10 Days Qty: 22 0RF Rx Instructions: apply to area on finger as directed Referrals Follow up/Referrals: Rivera Johnson MD [Primary Care Provider] - See instructions Activity Restrictions/Add. Instructions Additional Instructions/Restrictions: *Monitor Temp, Over the counter Motrin or Tylenol as directed/as needed Tylenol every 4 hours and Motrin every 6 hours (as long as your family doctor has told you that you can take it) for fever or pain. and straight to ER if unable to lower temp less than 101.0 after medication given *Warm salt water gargles may help to soothe the throat *Throat Lozenges? *Warm fluids like tea with honey may help to soothe the throat? *Sleep elevated *Humidifier/Vaporizer *Flonase 2 sprays in each nostril daily but be aware that it may take 2-3 days before you notice improvement Take medication as prescribed Follow up IMMEDIATELY for new or worsening symptoms or no Noticeable improvement over the next 48-72 hours. 911 for difficulty breathing or swallowing Clinical Impressions Clinical Impression: Sinusitis, Otitis media Instructions Patient Instructions: DI for Sinusitis, Sinusitis, Middle Ear Infection Discharge ED Provider: Jennifer Bonilla [facility] [place] HPI General Stated complaint: Bilateral ear pain,SCHULTZ,Cough,body aches Mode of Arrival: Ambulatory Source of Information: Patient Limitations: No Limitations Time Seen by Provider: 08/13/22 19:37 Description of Symptoms (Recalled from Triage Doc. by RN): pt c/o a productive cough, weakness, myalgia and bilateral ear pain. ongoing since 08/10 HEENT Symptoms (Recalled from RN notes): Yes Resp Symptoms (Recalled from RN notes): Yes Skin Symptoms (Recalled from RN notes): No MS Symptoms (Recalled from RN notes): No Functional Status (Recalled from RN notes): wnl History of Present Illness Provider Complaint: Patient states that she has been having bilateral ear pain worse in her left ear, sinus pain and pressure with drainage in the back of her throat and at times will cough up mucous thinks it may be from the drainage and feeling achy and headache States that today she was feeling worse so she came in Related Data Previous Rx's Medication Instructions Recorded fluoxetine 20 mg capsule (Prozac) 20 mg PO DAILY #30 caps 05/29/22 hydroxyzine pamoate 25 mg capsule 25 mg PO TID PRN nausea and 06/24/22 (Vistaril) vomiting #60 caps sumatriptan succinate 25 mg tablet 25 mg PO Q2H PRN MIGRAINES #20 tabs 06/24/22 (Imitrex) mupirocin 2 % topical ointment 1 applic topical TID 10 days #22 07/11/22 grams phentermine 37.5 mg tablet 37.5 mg PO DAILY #30 tabs 07/22/22 (Adipex-P) cefdinir 300 mg capsule 300 mg PO BID #20 caps 08/13/22 fluticasone propionate 50 1 - 2 spr
[2022-08-13 20:08] VITALS: BP 123/74; PULSE 79; RESP 18; TEMP 37
== END 2022-08-13 20:10 | disposition home or self-care (01) ==
PROVIDERS: Emergency Provider Nurse Practitioner; PCP Family Medicine
DX: H66.93 Otitis media, unspecified, bilateral (principal); J01.90 Acute sinusitis, unspecified
CPT/HCPCS: 99212; 99214; G0463

== ENCOUNTER → 2022-08-30 13:04 | Outpatient (CLI) | payer OTHER, SELFPAY ==
--- NOTE | 2022-08-30 13:05 | MR_ITS ---
FINAL REPORT TECHNIQUE: Multiplanar MR, without and with gadolinium enhancement CLINICAL HISTORY: encephalopathy headaches memory issues per patient FINDINGS: Diffusion sequences show no signal abnormality to indicate acute infarct. No mass, hemorrhage or edema is seen. Ventricles are normal. Major vascular flow voids are intact. Following contrast administration, no mass or abnormal enhancement is seen. IMPRESSION: Unremarkable MR evaluation the brain with contrast Reviewed, Interpreted and Dictated by Grisel Berkowitz MD Transcribed by Margarita Key Authenticated and [facility]
== END ==
LOC: RAD 13:05
PROVIDERS: PCP Family Medicine; Visit Provider Nurse Practitioner Family
DX: R41.3 Other amnesia (principal)
CPT/HCPCS: 70553; A9576

== ENCOUNTER → 2022-09-06 15:04 | Outpatient (CLI) | payer OTHER, SELFPAY ==
[2022-09-06 16:03] LABS: Basophils # 0.1 K/mm3 (0-0.2); Basophils % 0.7 % (0.1-2.0); Eosinophils % 0.3 % (0.1-12.0); Hematocrit 47.1 % (37.0-47.0); Hemoglobin 15.6 g/dL (12.2-16.2); Lymphocytes # 1.7 K/mm3 (0.7-4.5); Lymphocytes % 25.9 % (10-50); Mean Corpuscular HGB Conc 33.1 g/dL (31.8-35.4); Mean Corpuscular Hemoglobin 30.4 pg (27.0-31.2); Mean Corpuscular Volume 91.8 fl (81-99); Mean Platelet Volume 8.4 fl (7.4-10.4); Monocytes # 0.3 K/mm3 (0.1-1.0); Neutrophils # 4.6 K/mm3 (1.8-7.8); Neutrophils % 69.1 % (37.0-80.0); Platelet Count 318 K/mm3 (142-424); Red Blood Count 5.13 M/mm3 (4.20-5.40); Red Cell Distribution Width 13.5 % (11.5-17.5); White Blood Count 6.7 K/mm3 (4.8-10.8)
[2022-09-06 16:13] LABS: Alanine Aminotransferase 25 U/L (12-78); Albumin Level 4.5 g/dl (3.5-5.0); Albumin/Globulin Ratio 1.6 (1.1-1.8); Alkaline Phosphatase 94 U/L (38-126); Anion Gap 15.7 mEq/L (5-15); Aspartate Amino Transferase 26 U/L (14-36); Bilirubin,Total 0.8 mg/dl (0.2-1.3); Blood Urea Nitrogen 8 mg/dl (7-17); Calcium 9.2 mg/dl (8.4-10.2); Carbon Dioxide 29 mmol/L (22.0-30.0); Chloride 94 mmol/L (98-107); Estimated Glomerular Filt Rate 108 ml/min (>60); GFR (African American) 130 ML/MIN (>60); Globulin 2.8 g/dL (1.3-3.2); Glucose 97 mg/dl (74-100); Potassium 3.7 mmoL/L (3.5-5.1); Sodium 135 mmol/L (136-145); Total Protein,Serum 7.3 g/dl (6.3-8.2)
[2022-09-06 16:14] LABS: Chol/HDL Ratio 2.6 (1-3.5); Cholesterol 208 mg/dl (140-200); HDL Cholesterol 81 mg/dl (40-60); Triglycerides 79 mg/dl (30-150); VLDL Cholesterol 16 mg/dL (0-40)
[2022-09-06 16:45] LABS: Thyroid Stimulating Hormone 1.74 uIU/mL (0.465-4.68)
[2022-09-06 17:21] LABS: Vitamin B12 252 pg/mL (239-931)
[2022-09-06 17:23] LABS: Folate 7.16 ng/mL
[2022-09-08 08:12] LABS: Rapid Plasma Reagin Ab Titer Non Reactive (NonRea<1:1)
== END ==
LOC: LAB 15:06
PROVIDERS: Nurse Practitioner Family; PCP Family Medicine; Visit Provider Nurse Practitioner Obstetrics & Gynecology
DX: Z00.00 Encounter for general adult medical examination without abnormal findings (principal); R41.3 Other amnesia
CPT/HCPCS: 36415; 80053; 80061; 82607; 82746; 84443; 85025; 86593

== ENCOUNTER → 2022-09-17 15:12 | Outpatient (CLI) | payer OTHER, SELFPAY | LOC: SL 15:13 | PROVIDERS: PCP Family Medicine; Visit Provider Nurse Practitioner Family | DX: G47.30 Sleep apnea, unspecified (principal); R06.83 Snoring; R41.3 Other amnesia; G47.00 Insomnia, unspecified; Z87.898 Personal history of other specified conditions | CPT/HCPCS: G0399 ==

== ENCOUNTER → 2022-10-03 08:44 | Outpatient (CLI) | payer OTHER, SELFPAY ==
--- NOTE | 2022-10-03 08:44 | US_ITS ---
FINAL REPORT CLINICAL HISTORY: right lower quad pain COMPARISON: None FINDINGS: ULTRASOUND EXTREMITY, LIMITED Sonographic images of the region of interest in the bilateral inguinal regions were obtained. There is a 3.6 cm fluid collection in the right inguinal region worrisome for hernia containing fluid. Left inguinal region is unremarkable. IMPRESSION: 3.6 cm fluid collection right inguinal region worrisome for hernia containing fluid. Reviewed, Interpreted and Dictated by Khalif Quintero III, MD Transcribed by Kendra Hensley Authenticated and [facility]
== END ==
PROVIDERS: PCP Family Medicine; Visit Provider Surgery
DX: R10.31 Right lower quadrant pain (principal); R19.09 Other intra-abdominal and pelvic swelling, mass and lump
CPT/HCPCS: 76700

== ENCOUNTER → 2022-12-09 16:37 | Outpatient (CLI) | payer OTHER, SELFPAY ==
[2022-12-09 18:29] LABS: Vitamin B12 243 pg/mL (239-931)
[2022-12-11 10:20] LABS: Homocyst(e)ine 23.8 umol/L (0.0-14.5)
[2022-12-17 09:38] LABS: Methylmalonic Acid 485 nmol/L (0-378)
== END ==
LOC: LAB 16:38
PROVIDERS: PCP Family Medicine; Visit Provider Nurse Practitioner Family
DX: D51.9 Vitamin B12 deficiency anemia, unspecified (principal); R41.3 Other amnesia
CPT/HCPCS: 36415; 82607; 83090; 83921

== ENCOUNTER → 2023-01-20 14:57 | Outpatient (CLI) | payer OTHER, SELFPAY | LOC: SL 14:58 | PROVIDERS: PCP Family Medicine; Visit Provider Nurse Practitioner Family | DX: G47.00 Insomnia, unspecified (principal); G47.30 Sleep apnea, unspecified; G47.9 Sleep disorder, unspecified | CPT/HCPCS: 95806 ==

== ENCOUNTER 2024-03-12 14:49 | Outpatient (CLI) | payer BC, SELFPAY ==
--- NOTE | 2024-03-12 | US_ITS ---
FINAL REPORT CLINICAL HISTORY: INGUINAL PAIN COMPARISON: None FINDINGS: Limited sonographic images were obtained of the right inguinal region at the area of interest. There is a small amount of fluid in the right inguinal canal. There appears to be a hernia containing only fat. Otherwise, no mass is identified. IMPRESSION: Hernia containing only fat at the area of interest. Recommend CT for further evaluation if indicated. Reviewed, Interpreted and Dictated by Marianne Parnell MD Transcribed by Kendar Hensley Authenticated and [facility]
== END 2024-03-12 23:59 | disposition home or self-care (01) ==
LOC: RAD 14:50
PROVIDERS: PCP Family Medicine; Visit Provider Nurse Practitioner
DX: R10.30 Lower abdominal pain, unspecified (principal); K46.9 Unspecified abdominal hernia without obstruction or gangrene
CPT/HCPCS: 76882

== ENCOUNTER 2024-12-07 12:47 | Outpatient (CLI) | payer BC, SELFPAY ==
--- NOTE | 2024-12-07 12:50 | XR_ITS ---
FINAL REPORT CLINICAL HISTORY: cough COMPARISON: 02/07/2021 FINDINGS: CHEST 2 VIEWS PA AND LATERAL The heart is normal in size. The mediastinum is unremarkable. The lungs are clear. There is no pneumothorax. IMPRESSION: No acute process. Reviewed, Interpreted and Dictated by Willy Maria MD Transcribed by Margarita Key Authenticated and . [facility]
== END 2024-12-07 23:59 | disposition home or self-care (01) ==
LOC: RAD 12:48
PROVIDERS: PCP Family Medicine; Visit Provider Student in an Organized Health Care Education/Training Program
DX: R05.9 Cough, unspecified (principal)
CPT/HCPCS: 71046